=== PATIENT | male | born 1935 | race Caucasian/White ===

== ENCOUNTER 2017-07-12 11:47 | Inpatient (IN) | payer MEDICAID ==
[~2017-07-12] VITALS: Ht 175.3 cm; Wt 58.1 kg
--- NOTE | ~2017-07-12 | OP ---
PATIENT NAME: ROSA M TUCKER MEDICAL RECORD: [id number] :33 LOCATION:[id number] ADMISSION DATE:07/12/17 SURGEON: ALESHIA RAYMUNDO MD DATE OF OPERATION: 07/16/2017 PREOPERATIVE DIAGNOSIS: Displaced femoral neck fracture of the right hip. POSTOPERATIVE DIAGNOSIS: Displaced femoral neck fracture of the right hip. PROCEDURE: Right endoprosthetic bipolar hip replacement. SURGEON: Aleshia Raymundo MD ANESTHESIA: General. INTRAOPERATIVE COMPLICATIONS: None. SUMMARY OF PATHOLOGIC FINDINGS: The patient had a completely displaced femoral neck fracture consistent with preoperative diagnosis. IMPLANTS USED: Kat Anato bipolar hip system, size 4 stem, size -3, internal head x26 size 50 bipolar external. ESTIMATED BLOOD LOSS: 100 cc. OPERATIVE SUMMARY IN DETAIL: After obtaining the appropriate preoperative orthopedic surgery consent as well as anesthetic consultation, evaluation and clearance, the patient was brought to the operating room and placed on the operating table in supine position. After general laryngeal mask was administered, the patient was placed in left lateral decubitus position. All pressure points were well padded to include down leg peroneal pad as well as axillary roll. The patient was held firmly to the operating table using the vacuum pack suction system. Right lower extremity and hip were then prepped and draped in a routine sterile fashion. Curvilinear incision made over the greater trochanter, taken down with the IT band which was split in line with fibers. The IT band and gluteus medius minimus were reflected anteriorly and saved for later reapproximation. The hip capsule was cut in a T-type action and likewise saved for later reapproximation. Femoral neck cut was made using the Anato femoral neck cutting guide followed by extraction of the femoral head. The acetabulum was lavaged. Serial and sequential reaming and broaching were done for a size 4 Anato, neutral stem was put into place. Trial was undertaken. Final components were articulated and tapped into place with Santiago taper. Hip was reduced, taken through range of motion, and found to be stable in all planes. Intraoperative radiograph showed good position and placement of all components. Hip capsule was closed with #2 Ethibond followed by transosseous reapproximation of the gluteus medius minimus back to the greater trochanter using #5 Ethibond. The IT band was closed with #2 Ethibond followed by #1 Vicryl and skin tawana. Sterile dressings were applied. The patient was awakened, taken to recovery in stable condition. All final needle and sponge counts were correct. TRANSINT:[id number] Voice Confirmation ID: [id number] DOCUMENT ID: [id number] OPERATIVE REPORT [id number] ROSA M TUCKER MD, ALESHIA BULL at 1026 CC: [id number] DICTATION DATE: 07/16/17 1238 MACHINE MAINTENANCE TECHNICIAN: 07/16/17 1303 ADM IN [place] [id number] [place] [id number]
[2017-07-12 12:29] LABS: BASOPHILS 0.1 % (0-2); EOSINOPHILS 0.1 % (0-7); HEMATOCRIT 34.9 % (42.0-54.0); HEMOGLOBIN 11.7 g/dL (13.5-17.5); IMMATURE GRANULOCYTES 0.4 % (0-5); LYMPHOCYTES 7.2 % (15-50); MCH 30.9 pg (26.0-34.0); MCHC 33.5 g/dL (31.0-37.0); MCV 92.1 fL (80.0-100.0); MEAN PLATELET VOLUME 10.5 fL (7.4-10.4); MONOCYTES 13.6 % (2-11); NEUTROPHILS 78.6 % (40-80); PLATELET COUNT 292 10x3/uL (130-400); RBC 3.79 10x6/uL (4.20-6.10); RDW 14.6 % (11.5-14.5); WBC 16.9 10x3/uL (4.8-10.8)
[2017-07-12 12:38] LABS: APTT 47.3 SECONDS (22.8-39.4); INR 2.1 (0.85-1.17)
[2017-07-12 12:46] LABS: BILIRUBIN - TOTAL 0.44 mg/dL (0.2-1.3); CALCIUM 9.3 mg/dL (8.5-10.1); CARBON DIOXIDE 23.7 mmol/L (21.0-32.0); CREATININE - SERUM 2.1 mg/dL (0.6-1.3); POTASSIUM - SERUM 4.7 mmol/L (3.5-5.1); PROTEIN - SERUM 7.6 g/dL (6.4-8.2)
[2017-07-12 13:52] LABS: COLOR YELLOW (YELLOW)
[2017-07-12 13:53] LABS: APPEARANCE HAZY (CLEAR); BILIRUBIN NEGATIVE (NEGATIVE); GLUCOSE NEGATIVE (NEGATIVE); KETONE NEGATIVE (NEGATIVE); NITRITE NEGATIVE (NEGATIVE); PROTEIN 3+ mg/dL (NEGATIVE); SPECIFIC GRAVITY 1.015 (1.005-1.020); UROBILINOGEN NORMAL (NORMAL)
[2017-07-12 13:54] LABS: BACTERIA MODERATE /hpf (NONE SEEN); GRANULAR CAST RARE /lpf (NONE SEEN); HYALINE CAST RARE /lpf (NONE SEEN); MUCUS <1+ /lpf (NONE SEEN); RED CELLS - URINE OCC /hpf (0-5)
[2017-07-12 13:55] LABS: EPITHELIAL CELL CAST OCC /lpf (NONE SEEN)
[2017-07-12 18:10] LABS: APPEARANCE CLEAR (CLEAR); COLOR YELLOW (YELLOW); GLUCOSE NEGATIVE (NEGATIVE); NITRITE NEGATIVE (NEGATIVE); PROTEIN 1+ mg/dL (NEGATIVE)
[2017-07-12 18:11] LABS: BILIRUBIN NEGATIVE (NEGATIVE); KETONE NEGATIVE (NEGATIVE); UROBILINOGEN NORMAL (NORMAL)
[2017-07-13 01:31] VITALS: BP 122/65; BMI 19.0
[2017-07-13] MEDS ORDERED: ULTRAM50 MG PO (02:58)
[2017-07-13] MEDS ORDERED: MOTRIN600 MG PO (02:59)
[2017-07-13] MEDS ORDERED: PROMOD LIQUID P30 M1 PO (03:01)
[2017-07-13] MEDS ORDERED: DERMAREST TOPICAL (03:06)
[2017-07-13] MEDS ORDERED: COUMADIN3 MG PO (03:13)
[2017-07-13] MEDS ORDERED: PACERONE200 MG PO (03:15)
[2017-07-13] MEDS ORDERED: BACITRACIN3.5 GM TOPICAL (03:15)
[2017-07-13] MEDS ORDERED: LIPITOR40 MG PO (03:16)
[2017-07-13] MEDS ORDERED: [UNRECOGNIZED DRUG - OTHER] OP (03:19)
[2017-07-13] MEDS ORDERED: TEGRETOL 100 M100 MG PO (03:20)
[2017-07-13] MEDS ORDERED: ARTIFICIAL TEAR15 ML EACH EYE (03:22)
[2017-07-13] MEDS ORDERED: AMIODIPINE BESYLATE PO (03:27)
[2017-07-13] MEDS ORDERED: FERROUS SULFAT325 MG PO (03:28)
[2017-07-13 05:23] VITALS: BP 128/76
[2017-07-13 06:45] LABS: BASOPHILS 0.1 % (0-2); HEMATOCRIT 32.3 % (42.0-54.0); HEMOGLOBIN 10.4 g/dL (13.5-17.5); IMMATURE GRANULOCYTES 0.2 % (0-5); INR 1.88 (0.85-1.17); LYMPHOCYTES 13.1 % (15-50); MCH 30.3 pg (26.0-34.0); MCHC 32.2 g/dL (31.0-37.0); MONOCYTES 12.3 % (2-11); NEUTROPHILS 73.3 % (40-80); PLATELET COUNT 296 10x3/uL (130-400); PROTIME 21.1 SECONDS (11.6-15.0); RBC 3.43 10x6/uL (4.20-6.10); RDW 14.8 % (11.5-14.5); WBC 12.9 10x3/uL (4.8-10.8)
[2017-07-13 06:49] LABS: ANION GAP 13.9 mmol/L (8-16); CALCIUM 8.8 mg/dL (8.5-10.1); CARBON DIOXIDE 23.7 mmol/L (21.0-32.0); CREATININE - SERUM 1.7 mg/dL (0.6-1.3); POTASSIUM - SERUM 4.6 mmol/L (3.5-5.1)
[2017-07-13 06:58] LABS: MCV 94.2 fL (80.0-100.0)
[2017-07-13 08:05] VITALS: BP 139/67
[2017-07-13 12:39] VITALS: Ht 175.3 cm; Wt 58.1 kg
[2017-07-13 12:40] VITALS: BP 139/64
[2017-07-13 16:14] VITALS: BP 143/63
[2017-07-13 22:09] VITALS: BP 123/60
[2017-07-14 01:29] VITALS: BP 124/64
[2017-07-14 04:48] LABS: BASOPHILS 0.1 % (0-2); EOSINOPHILS 1.1 % (0-7); HEMATOCRIT 31.3 % (42.0-54.0); HEMOGLOBIN 10.3 g/dL (13.5-17.5); IMMATURE GRANULOCYTES 0.2 % (0-5); LYMPHOCYTES 10.6 % (15-50); MCH 30.7 pg (26.0-34.0); MCHC 32.9 g/dL (31.0-37.0); MCV 93.2 fL (80.0-100.0); MEAN PLATELET VOLUME 10.8 fL (7.4-10.4); MONOCYTES 7.8 % (2-11); NEUTROPHILS 80.2 % (40-80); PLATELET COUNT 315 10x3/uL (130-400); RBC 3.36 10x6/uL (4.20-6.10); RDW 14.5 % (11.5-14.5); WBC 10.5 10x3/uL (4.8-10.8)
[2017-07-14 05:14] LABS: PROTIME 17.5 SECONDS (11.6-15.0)
[2017-07-14 05:17] LABS: ANION GAP 17.3 mmol/L (8-16); BILIRUBIN - TOTAL 0.5 mg/dL (0.2-1.3); CALCIUM 7.7 mg/dL (8.5-10.1); CARBON DIOXIDE 19.8 mmol/L (21.0-32.0); CREATININE - SERUM 1.6 mg/dL (0.6-1.3); POTASSIUM - SERUM 4.1 mmol/L (3.5-5.1); PROTEIN - SERUM 6.2 g/dL (6.4-8.2)
[2017-07-14 05:19] LABS: INR 1.49 (0.85-1.17)
[2017-07-14 05:22] LABS: ALBUMIN 2.2 g/dL (3.4-5.0)
[2017-07-14 07:57] VITALS: BP 150/77
[2017-07-14 16:18] VITALS: BP 145/62
[2017-07-14 20:00] VITALS: BP 140/74
[2017-07-15 04:00] VITALS: BP 150/62
[2017-07-15 04:23] LABS: BASOPHILS 0.2 % (0-2); HEMATOCRIT 31.2 % (42.0-54.0); HEMOGLOBIN 10.4 g/dL (13.5-17.5); IMMATURE GRANULOCYTES 0.4 % (0-5); LYMPHOCYTES 12.8 % (15-50); MCH 30.8 pg (26.0-34.0); MCHC 33.3 g/dL (31.0-37.0); MCV 92.3 fL (80.0-100.0); MEAN PLATELET VOLUME 10.1 fL (7.4-10.4); NEUTROPHILS 75.6 % (40-80); PLATELET COUNT 301 10x3/uL (130-400); RBC 3.38 10x6/uL (4.20-6.10); RDW 14.3 % (11.5-14.5); WBC 11.3 10x3/uL (4.8-10.8)
[2017-07-15 04:35] LABS: INR 1.44 (0.85-1.17); PROTIME 17.1 SECONDS (11.6-15.0)
[2017-07-15 04:42] LABS: ALBUMIN 2.2 g/dL (3.4-5.0); ANION GAP 15.9 mmol/L (8-16); BILIRUBIN - TOTAL 0.35 mg/dL (0.2-1.3); CALCIUM 8.1 mg/dL (8.5-10.1); CARBON DIOXIDE 20.9 mmol/L (21.0-32.0); CREATININE - SERUM 1.4 mg/dL (0.6-1.3); POTASSIUM - SERUM 3.8 mmol/L (3.5-5.1); PROTEIN - SERUM 6.1 g/dL (6.4-8.2)
[2017-07-15 07:44] VITALS: BP 148/70
[2017-07-15 12:21] VITALS: BP 158/77
[2017-07-15 15:55] VITALS: BP 145/64
[2017-07-15 20:00] VITALS: BP 149/71
[2017-07-16 03:57] LABS: BASOPHILS 0.1 % (0-2); EOSINOPHILS 0.4 % (0-7); HEMATOCRIT 33.4 % (42.0-54.0); IMMATURE GRANULOCYTES 0.2 % (0-5); LYMPHOCYTES 8.6 % (15-50); MCHC 32.9 g/dL (31.0-37.0); MEAN PLATELET VOLUME 10.3 fL (7.4-10.4); MONOCYTES 10.4 % (2-11); NEUTROPHILS 80.3 % (40-80); PLATELET COUNT 345 10x3/uL (130-400); RBC 3.67 10x6/uL (4.20-6.10); RDW 14.3 % (11.5-14.5); WBC 14.1 10x3/uL (4.8-10.8)
[2017-07-16 03:59] LABS: INR 1.38 (0.85-1.17); PROTIME 16.5 SECONDS (11.6-15.0)
[2017-07-16 04:00] VITALS: BP 59/83
[2017-07-16 04:08] LABS: ALBUMIN 2.4 g/dL (3.4-5.0); ANION GAP 19.2 mmol/L (8-16); BILIRUBIN - TOTAL 0.51 mg/dL (0.2-1.3); CALCIUM 8.5 mg/dL (8.5-10.1); CARBON DIOXIDE 18.3 mmol/L (21.0-32.0); CREATININE - SERUM 1.3 mg/dL (0.6-1.3); POTASSIUM - SERUM 3.5 mmol/L (3.5-5.1); PROTEIN - SERUM 6.7 g/dL (6.4-8.2)
[2017-07-16 08:15] VITALS: BP 159/67
[2017-07-16 13:23] VITALS: BP 157/103
[2017-07-16 21:57] VITALS: BP 96/75
[2017-07-16 23:37] VITALS: BP 145/81
[2017-07-17 00:57] VITALS: BP 145/81
[2017-07-17 05:45] VITALS: BP 148/84
[2017-07-17 06:04] LABS: BASOPHILS 0.1 % (0-2); EOSINOPHILS 0 % (0-7); HEMATOCRIT 30.1 % (42.0-54.0); HEMOGLOBIN 9.9 g/dL (13.5-17.5); IMMATURE GRANULOCYTES 0.4 % (0-5); LYMPHOCYTES 6.4 % (15-50); MCH 30.1 pg (26.0-34.0); MCHC 32.9 g/dL (31.0-37.0); MCV 91.5 fL (80.0-100.0); MEAN PLATELET VOLUME 10.8 fL (7.4-10.4); MONOCYTES 13.1 % (2-11); PLATELET COUNT 336 10x3/uL (130-400); RBC 3.29 10x6/uL (4.20-6.10); RDW 14.5 % (11.5-14.5); WBC 15.1 10x3/uL (4.8-10.8)
[2017-07-17 06:24] LABS: PROTIME 19.6 SECONDS (11.6-15.0)
[2017-07-17 06:29] LABS: INR 1.72 (0.85-1.17)
[2017-07-17 06:31] LABS: ALBUMIN 2.1 g/dL (3.4-5.0); ANION GAP 19.7 mmol/L (8-16); BILIRUBIN - TOTAL 0.4 mg/dL (0.2-1.3); CALCIUM 8.1 mg/dL (8.5-10.1); CARBON DIOXIDE 17.7 mmol/L (21.0-32.0); CREATININE - SERUM 1.3 mg/dL (0.6-1.3); POTASSIUM - SERUM 3.4 mmol/L (3.5-5.1); PROTEIN - SERUM 6.3 g/dL (6.4-8.2)
[2017-07-17 09:16] VITALS: BP 163/75
[2017-07-17 09:46] LABS: APPEARANCE HAZY (CLEAR); BILIRUBIN NEGATIVE (NEGATIVE); COLOR YELLOW (YELLOW); GLUCOSE NEGATIVE (NEGATIVE); KETONE MODERATE mg/dL (NEGATIVE); NITRITE NEGATIVE (NEGATIVE); PROTEIN 3+ mg/dL (NEGATIVE); SPECIFIC GRAVITY 1.015 (1.005-1.020); UROBILINOGEN NORMAL (NORMAL)
[2017-07-17 09:47] LABS: BACTERIA FEW /hpf (NONE SEEN); EPITHELIAL CELLS 0-5 /hpf (0-5); RED CELLS - URINE 0-5 /hpf (0-5); WHITE CELLS - URINE 0-5 /hpf (0-5)
[2017-07-17 12:08] VITALS: BP 133/81
[2017-07-17 16:07] VITALS: BP 162/82
[2017-07-17 23:18] VITALS: BP 159/74
[2017-07-18 04:00] VITALS: BP 143/67
[2017-07-18 05:12] LABS: BASOPHILS 0.1 % (0-2); HEMATOCRIT 28.5 % (42.0-54.0); HEMOGLOBIN 9.3 g/dL (13.5-17.5); IMMATURE GRANULOCYTES 0.4 % (0-5); MCH 30.2 pg (26.0-34.0); MCHC 32.6 g/dL (31.0-37.0); MCV 92.5 fL (80.0-100.0); MEAN PLATELET VOLUME 10.7 fL (7.4-10.4); MONOCYTES 11.6 % (2-11); NEUTROPHILS 76.9 % (40-80); PLATELET COUNT 346 10x3/uL (130-400); RBC 3.08 10x6/uL (4.20-6.10); RDW 14.7 % (11.5-14.5); WBC 16.9 10x3/uL (4.8-10.8)
[2017-07-18 05:23] LABS: INR 1.88 (0.85-1.17); PROTIME 21.1 SECONDS (11.6-15.0)
[2017-07-18 06:08] LABS: ALBUMIN 1.8 g/dL (3.4-5.0); ANION GAP 17.5 mmol/L (8-16); BILIRUBIN - TOTAL 0.36 mg/dL (0.2-1.3); CALCIUM 8.4 mg/dL (8.5-10.1); CARBON DIOXIDE 20.7 mmol/L (21.0-32.0); CREATININE - SERUM 1.4 mg/dL (0.6-1.3); POTASSIUM - SERUM 3.2 mmol/L (3.5-5.1); PROTEIN - SERUM 5.9 g/dL (6.4-8.2)
[2017-07-18] MEDS ORDERED: ELIQUIS2.5 MG PO (06:22)
[2017-07-18 08:25] VITALS: BP 159/73
[2017-07-18 14:08] VITALS: BP 158/74
== END 2017-07-18 18:26 | DRG 470 ==
LOC: D.ER 11:47 → D.EDHOLD 13:15 → D.MS 13:15
PROVIDERS: Emergency Medicine; Family Medicine; Orthopaedic Surgery
PROC: 0SRR0JZ Replacement of Right Hip Joint, Femoral Surface with Synthetic Substitute, Open Approach (ICD-10-PCS; principal; 2017-07-16 10:15)
DX: S72.001A Fracture of unspecified part of neck of right femur, initial encounter for closed fracture (principal); N17.9 Acute kidney failure, unspecified; F03.90 Unspecified dementia, unspecified severity, without behavioral disturbance, psychotic disturbance, mood disturbance, and anxiety; K21.9 Gastro-esophageal reflux disease without esophagitis; I10 Essential (primary) hypertension; I48.91 Unspecified atrial fibrillation; Z79.01 Long term (current) use of anticoagulants; N30.90 Cystitis, unspecified without hematuria